=== PATIENT | male | born 1960 | race Two or more races ===

== ENCOUNTER 2017-02-20 16:46 | Emergency (ER) | payer MEDICAID ==
--- NOTE | 2017-02-20 17:42 | ED Physician Chart ---
Chief Complaint/HPI - Patient Information Date Seen:: 02/20/17 Time Seen:: 17:41 Chief Complaint:: SPLINTER IN THE RT BIG TOE History of Present Illness:: Five days ago this pt [place] when he sustained an injury to the right great toe. He believes there is a splinter in the toe. He denies any other injuries at the time. Allergies:: Allergies Allergy/AdvReac Type Severity Reaction Status Date / Time No Known Allergies Allergy Verified 02/20/17 17:30 Vitals:: Vital Signs - 8 hr 02/20/17 17:30 Temp 98.2 F HR 75 RR 18 BP 122/81 O2 Sat % 98 Past Medical History - Past Medical History Past Medical History: No significant medical hx Social History: Non Smoker, No Drug Use, Other (occational alcohol use.) Surgical History: None Family Medical History - Family Member Mother Ethnicity: Living Status: Hx Family Cancer: Yes Hx Family Hypertension: Yes Brother History Unknown: Yes Ethnicity: Living Status: Still Living Hx Family Cancer: Yes Physical Exam - Physical Examination General/Constitutional: Awake, Well-developed, well-nourished, Alert, No distress, Non-toxic appearing, Ambulatory Head: Atraumatic Eyes: Lids, conjuctiva normal, PERRL, EOMI Skin: No rash, No ecchymosis ENMT: External ears, nose nl, Nasal exam nl, Oropharynx nl, Tonsils nl Neck: Nontender, No JVD, No mass Respiratory: Nl effort/Exclusion, Clear to Auscultation, No Wheeze/Rhonchi/Rales Cardio Vascular: RRR, No murmur, gallop, rubs, NL S1 S2 Other Cardio Vascular comments:: Good pulses in all four extremities. GI: No tenderness/rebounding/guarding Extremities: normal strength in all extremities, No edema Other Extremities comments:: The right great toe has what appears to be a puncture blown lateral to the nail bed with a palpable hard linear object. No nail bed deformities or hematoma. Misc: Normal back Labs/Radiology/EKG Results - Lab Results Results: To view x-ray of the right great toe: NO FX or VISUALIZED FB. NO DISLOCATION. Assessment - Assessment General Assessment: INCISION AND SEARCH FOR FB IN RT GREAT TOE. ANESTHETIZED WITH NERVE BLOCK USING 5 CC !% LIDOCAINE. THE SKIN WAS CLEANED WITH BETADINE. AN INCISSION WITH NO. 11 SCALPAL BLADE WAS MADE OVER THE SUSPECTED FOREIGN BOFY. BLUNT DISECTION USING MOSQUITO FORCEPS. No foreign body was visualized or palpated within the incision. The incision was irrigated with normal saline and closed with three Nylon sutures. Wound dressed by nursing staff. the patient tolerated the procedure well. ED Septic Shock - . Is Septic Shock (SBP<90, OR Lactate>4 mmol\L) present?: No - <6hrs of presentation: Vital Signs: Vital Signs - 8 hr 02/20/17 17:30 Temp 98.2 F HR 75 RR 18 BP 122/81 O2 Sat % 98 Reassessment (Disposition) - Reassessment Reassessment Condition:: Unchanged - Diagnosis Diagnosis:: suspected foreign body in the right great toe. None identified. - Aftercare/Follow up Instructions Aftercare/Follow-Up Instructions:: Counseled pt regarding lab results/diagnosis & need follow up Notes:: I recommended that the patient follow up with his primary care physician and obtain a Xerogram if a foreign body was still a consideration. Return for suture removal in 7 to 10 days. ED Discharge Plan - Patient Disposition Admit/Discharge/Transfer: PT DISCHARGED HOME Instructions: Sliver Removal
--- NOTE | 2017-02-21 10:52 | Diagnostic Imaging Report ---
Right first toe (3 views) HISTORY: Pain, foreign body A calcific-like density noted adjacent to the medial aspect of the first ungual tuft. Changes may be related to a foreign body or possibly related to the overlying nail. No definite acute fractures seen. Severe degenerative changes with narrowing and mild valgus deformity noted about the first metatarsal phalangeal joint. IMPRESSION: 1. Calcific like density adjacent to the medial aspect of the first ungual tuft. This may be related to the overlying nail. A foreign body cannot be excluded. 2. No acute fractures 3. Severe degenerative changes about is deformity about the first metatarsal phalangeal joint.
== END 2017-02-20 20:05 | disposition home or self-care (01) ==
LOC: ER 16:46
DX: S90.451A Superficial foreign body, right great toe, initial encounter (principal); W45.8XXA Other foreign body or object entering through skin, initial encounter; Y93.89 Activity, other specified; Y92.89 Other specified places as the place of occurrence of the external cause; Y99.8 Other external cause status
CPT/HCPCS: 73660-TC-T5; A4217; J2001; X6444; Z7502; Z7610

== ENCOUNTER 2018-10-18 19:23 | Emergency (ER) | payer MEDICAID ==
--- NOTE | 2018-10-18 20:51 | ED Physician Chart ---
ED Chief Complaint/HPI - Patient Information Date Seen:: 10/18/18 Time Seen:: 20:46 Chief Complaint:: Headache History of Present Illness:: 58 yo male was playing football when his occipital head hit a cement pole and fell on the ground. Afterwards, he had a hematoma in the occipital area and had transient loss of short term memory. Per , pt did not completely loose consciousness. Pt did not have nausea or vomiting. Pt ambulated normally. Pt is not taking any medication. Allergies:: Allergies Allergy/AdvReac Type Severity Reaction Status Date / Time No Known Allergies Allergy Verified 02/20/17 17:30 Vitals:: Vital Signs - 8 hr 10/18/18 19:40 Temp 98.5 F HR 78 RR 18 BP 124/77 O2 Sat % 95 ED Review of Systems - Review of Systems General/Constitutional: No fever, No chills Skin: No rash Head: Headache Eyes: No pain ENT: No nasal drainage Neck: No neck pain Cardio Vascular: No chest pain Pulmonary: No SOB GI: No nausea, No vomiting Musculoskeletal: No bone or joint pain Psychiatric: No prior psych history Neurological: No focal symptoms ED Past Medical History - Past Medical History Past Medical History: No significant medical hx Social History: Non Smoker, No Alcohol, No Drug Use Surgical History: None Family Medical History - Family Member Mother Ethnicity: Living Status: Hx Family Cancer: Yes Hx Family Hypertension: Yes Other Medical History: THYROID [place] Brother History Unknown: Yes Ethnicity: Living Status: Still Living Hx Family Cancer: Yes Other Medical History: [place] ED Physical Exam - Physical Examination General/Constitutional: Awake, Alert Other Head comments:: right parietal occipital hematoma Eyes: PERRL, EOMI Skin: No rash ENMT: Nasal exam nl Neck: No nuchal rigidity Respiratory: Clear to Auscultation Cardio Vascular: RRR, No murmur, gallop, rubs, NL S1 S2 GI: No tenderness/rebounding/guarding Extremities: normal strength in all extremities Neuro/Psych: No focal deficits ED Labs/Radiology/EKG Results - Radiology Results Results: CT head wo contrast: Atrophy ED Assessment - Assessment General Assessment: Scalp contusion/hematoma Assessment/Comments:: CT head wo contrast Tylenol 650mg PO x 1 ED Septic Shock - . Is Septic Shock (SBP<90, OR Lactate>4 mmol\L) present?: No - <6hrs of presentation: Vital Signs: Vital Signs - 8 hr 10/18/18 19:40 Temp 98.5 F HR 78 RR 18 BP 124/77 O2 Sat % 95 ED Reassessment (Disposition) - Reassessment Reassessment Condition:: Improved - Patient Disposition Discharge/Transfer:: Home
--- NOTE | 2018-10-19 09:32 | Diagnostic Imaging Report ---
Head CT without intravenous contrast Indication: Head injury Comparison: Head CT on 08/10/2016 Technique: Axial images were obtained from the vertex to the skull base without IV contrast. Coronal reconstructions were made. Total DLP: [id number], [id number] FINDINGS: Images of the brain obtained without contrast demonstrate no acute hemorrhage. No mass lesions identified. The ventricles and basal cisterns are patent. The [place]-white matter differentiation is preserved. There is no mass effect or midline shift. Atrophy is noted. Atherosclerosis is noted. No skull fractures identified. No soft tissue swelling. The paranasal sinuses are clear. IMPRESSION: No acute intracranial abnormality. Atrophy. Atherosclerotic vascular disease.
== END 2018-10-18 21:00 | disposition home or self-care (01) ==
LOC: ER 19:23
DX: S00.03XA Contusion of scalp, initial encounter (principal); W18.09XA Striking against other object with subsequent fall, initial encounter; Y93.61 Activity, american tackle football; Y92.89 Other specified places as the place of occurrence of the external cause; Y99.8 Other external cause status
CPT/HCPCS: 70450-TC; Z7502; Z7610